=== PATIENT | female | born 1970 | race Caucasian/White ===

== ENCOUNTER 2018-11-28 13:52 | Emergency (ER) | payer OTHER ==
[2018-11-28 15:57] LABS: Urine Appearance Clear; Urine Bacteria 1+ (Absent); Urine Bilirubin Negative (Negative); Urine Blood Negative (Negative); Urine Color Straw; Urine Glucose Negative (Negative); Urine Ketones Negative (Negative); Urine Nitrite Negative (Negative); Urine Protein Negative (Negative); Urine Red Blood Cell Trace(0-2/hpf) (Absent); Urine Specific Gravity 1.005 (1.010-1.030); Urine Squamous Epithelial Cell Present (Absent); Urine Urobilinogen Negative (Negative); Urine White Blood Cell Trace(0-5/hpf) (Absent)
[2018-11-28] MEDS ORDERED: NS 0.9% 1000 ML** 1,000 ML IV ONE (16:01)
[2018-11-28] MEDS ORDERED: Ketorolac INJ* 30 MG/ML 1 ML VIAL IV PUSH ONE (16:04)
[2018-11-28] MEDS ORDERED: Ondansetron INJ* 2 MG/ML VIAL IV ONE (16:04)
--- NOTE | 2018-11-28 16:11 | ED ---
Abdominal Pain/Female - HPI Summary HPI Summary: This patient is a 48 year old F presenting to ED with a chief complaint of lower abdominal pain since 11/21/18. Patient is being treated for UTI with Bactrim. She only has 1 day left, but states she has continued pain in the R flank and low abdomen. Patients last BM was this morning, but she reports it was a small movement. Patient saw her OBGYN last week and is scheduled for an US on December. The patient rates the pain 6/10 in severity. Symptoms aggravated by nothing. Symptoms alleviated by nothing. Patient reports chills, nausea. Patient denies fever, vomiting. PSHx of appendectomy. No PMHx of diverticulitis or kidney stones. - History of Current Complaint Chief Complaint: EDAbdPain Stated Complaint: RIGHT SIDE FLANK PAIN Time Seen by Provider: 11/28/18 16:01 Hx Obtained From: Patient Hx Last Menstrual Period: currently Onset/Duration: Lasting Weeks - 1 week, Still Present Timing: Constant Severity Initially: Moderate Severity Currently: Moderate Pain Intensity: 6 Pain Scale Used: 0-10 Numeric Location: Discrete At: RLQ, Flank Aggravating Factor(s): Nothing Alleviating Factor(s): Nothing Associated Signs and Symptoms: Positive: Nausea, Other: - Chills. Negative: Fever, Vomiting Allergies/Adverse Reactions: Allergies Allergy/AdvReac Type Severity Reaction Status Date / Time MILK Allergy FLUID Uncoded 11/28/18 13:59 BUILD UP IN EARS Home Medications: Home Medications NK [No Home Medications Reported] 11/28/18 [History Confirmed 11/28/18] PMH/Surg Hx/FS Hx/Imm Hx Endocrine/Hematology History: Denies: Hx Diabetes Cardiovascular History: Denies: Hx Hypertension, Hx Pacemaker/ICD GI History: Denies: Hx Diverticulosis History: Denies: Hx Renal Disease Sensory History: Denies: Hx Hearing Aid Psychiatric History: Denies: Hx Panic Disorder - Cancer History Hx Chemotherapy: No Hx Radiation Therapy: No - Surgical History Surgery Procedure, Year, and Place: APPENDECTOMY -2005 - Immunization History Date of Tetanus Vaccine: Unk Date of Influenza Vaccine: Fall 2014 Infectious Disease History: No Infectious Disease History: Denies: Traveled Outside the [place] in Last 30 Days - Family History Known Family History: Negative: Cardiac Disease, Hypertension, Diabetes - Social History Alcohol Use: None Hx Substance Use: No Substance Use Type: Reports: None Hx Tobacco Use: Yes Smoking Status (MU): Former Smoker Review of Systems Positive: Chills. Negative: Fever Positive: Abdominal Pain, Nausea. Negative: Vomiting All Other Systems Reviewed And Are Negative: Yes Physical Exam - Summary Physical Exam Summary: GENERAL: Patient is a well-developed and nourished R who is lying comfortable in the stretcher. Patient is not in any acute respiratory distress. HEAD AND FACE: Normocephalic EYES: PERRLA, EOMI x 2. EARS: Hearing grossly intact. MOUTH: Oropharynx within normal limits. NECK: Supple, trachea is midline, no adenopathy, no JVD, no carotid bruit. CHEST: Symmetric, no tenderness at palpation LUNGS: Clear to auscultation bilaterally. No wheezing or crackles. CVS: Regular rate and rhythm, S1 and S2 present, no murmurs or gallops appreciated. ABDOMEN: Tenderness to palpation of the RLQ, no tenderness to palpation of the R CVA. EXTREMITIES: Full ROM in all major joints, no edema, no cyanosis or clubbing. NEURO: Alert and oriented x 3. No acute neurological deficits. Speech is normal and follows commands. SKIN: Dry and warm Triage Information Reviewed: Yes Vital Signs On Initial Exam: Initial Vitals Temp Pulse Resp BP Pulse Ox 98.0 F 83 16 124/80 100 11/28/18 13:55 11/28/18 13:55 11/28/18 13:55 11/28/18 13:55 11/28/18 13:55 Vital Signs Reviewed: Yes Diagnostics - Vital Signs Vital Signs Temp Pulse Resp BP Pulse Ox 11/28/18 13:55 98.0 F 83 16 124/80 100 - Laboratory Lab Results: Lab Results 11/28/18 Range/Units 15:47 Urine Color Straw Urine Appearance Clear Urine pH 6.0 (5-9) Ur Specific [place] 1.005 L (1.010-1.030) Urine Protein Negative (Negative) Urine Ketones Negative (Negative) Urine Blood Negative (Negative) Urine Nitrate Negative (Negative) Urine Bilirubin Negative (Negative) Urine Urobilinogen Negative (Negative) Ur Leukocyte Esterase Trace A (Negative) Urine WBC (Auto) Trace(0-5/hpf) (Absent) Urine RBC (Auto) Trace(0-2/hpf) (Absent) Ur Squamous Epith Cells Present A (Absent) Urine Bacteria 1+ A (Absent) Urine Glucose Negative (Negative) Result Diagrams: 11/28/18 16:17 11/28/18 16:17 Lab Statement: Any lab studies that have been ordered have been reviewed, and results considered in the medical decision making process. - CT A/P CT Interpretation Completed By: Radiologist Summary of CT Findings: 1. In the left adnexa there is a 3.2 cm fluid attenuation structure most consistent with a dominant ovarian follicle. If it' ll influence clinical management, superior characterization can be made with pelvic ultrasound. If the patient does undergo pelvic ultrasound careful imaging should also be obtained to identify any pathologically enlarged periuterine veins. 2. Metallic coils in the left ovarian vein are consistent with endovascular coiling of the left ovarian vein to treat pelvic congestion syndrome. Dr. Mcnulty has reviewed this radiology report. Re-Evaluation - Re-Evaluation First Eval Re-Evaluation Time: 18:59 Comment: Discussed CT results with patient. Patients she had coiling and varicose veins in the left abdomen. She reports not having problems in that area since. Patient is amenable to a pelvic US. Abdominal Pain Fem Course/Dx - Course Course Of Treatment: This patient is a 48 year old F presenting to ED with a chief complaint of lower abdominal pain since 11/21/18. UA revealed urine specific gravity 1.005, trace leukocyte esterase, present squamous epithelial cells, and 1+ urine bacteria. Blood work revealed sodium 134, glucose 113, absolute lymphs 0.9. In the ED course, patient received Toradol, Zofran, and fluids. CT A/P revealed 1. In the left adnexa there is a 3.2 cm fluid attenuation structure most consistent with a dominant ovarian follicle. If it' ll influence clinical management, superior characterization can be made with pelvic ultrasound. If the patient does undergo pelvic ultrasound careful imaging should also be obtained to identify any pathologically enlarged periuterine veins. 2. Metallic coils in the left ovarian vein are consistent with endovascular coiling of the left ovarian vein to treat pelvic congestion syndrome. Patient will be signed out for Dr. Edward Moulton at 1900 on 11/28/18 at shift change pending pelvic US. - Diagnoses Provider Diagnoses: Flank pain Discharge ED - Sign-Out/Discharge Documenting (check all that apply): Sign-Out Patient Signing out patient TO: Edward Moulton Patient Received Moderate/Deep Sedation with Procedure: No - Discharge Plan Referrals: Marlo REYNOLDS,Alexandre Mahoney [Primary Care Provider] - - Attestation Statements Document Initiated by Scribe: Yes Documenting Scribe: Rene Orellana Provider For Whom Robe is Documenting (Include Credential): Amador Mcnulty MD Scribe Attestation: I, Rene Orellana, scribed for Amador Mcnulty MD on 11/28/18 at 1903. Scribe Documentation Reviewed: Yes Provider Attestation: The documentation as recorded by the [email or web address] accurately reflects the service I personally performed and the decisions made by me, Amador Mcnulty MD Status of Scribe Document: Viewed
[2018-11-28 16:23] LABS: ABS Lymphocytes 0.9 10^3/ul (1.0-4.8); ABS Monocytes 0.6 10^3/ul (0-0.8); ABS Neutrophils 3.9 10^3/ul (1.5-7.7); Eosinophil % 0.7 %; Hematocrit 42 % (35-47); Hemoglobin 14.4 g/dL (12.0-16.0); Lymphocyte % 16.1 %; Mean Corpuscular HGB Conc 34 g/dL (31-36); Mean Corpuscular Hemoglobin 30 pg (27-31); Mean Corpuscular Volume 89 fL (80-97); Mean Platelet Volume 9.4 fL (7.4-10.4); Nucleated Red Blood Cells % 0.1; Platelet Count 173 10^3/uL (150-450); Red Blood Count 4.72 10^6 /uL (3.70-4.87); Red Cell Distribution Width 14 % (10-15); White Blood Count 5.5 10^3/uL (3.5-10.8)
[2018-11-28 16:40] LABS: ALT 18 U/L (7-52); AST 20 U/L (13-39); Albumin 4.4 g/dL (3.2-5.2); Albumin/Globulin Ratio 1.5 (1-3); Alkaline Phosphatase 50 U/L (34-104); Anion Gap 6 mmol/L (2-11); BUN/Creatinine Ratio 15.5 (8-20); Blood Urea Nitrogen 13 mg/dL (6-24); C Reactive Protein < 1.00 mg/L (<8.01); CO2 Carbon Dioxide 25 mmol/L (22-32); Calcium 9.3 mg/dL (8.6-10.3); Chloride 103 mmol/L (101-111); EGFR African American 86.8 (>60); EGFR Non-African American 71.8 (>60); Globulin 2.9 g/dL (2-4); Glucose 113 mg/dL (70-100); Magnesium 2.1 mg/dL (1.9-2.7); Potassium 4.1 mmol/L (3.5-5.0); Sodium 134 mmol/L (135-145); Total Protein 7.3 g/dL (6.4-8.9)
[2018-11-28] MEDS ORDERED: Iohexol 300* (CONTRAST) 10 ML SDV IV ONE (17:24)
--- NOTE | 2018-11-28 19:46 | ED ---
Progress - Progress Note Progress Note: Patient is received as a sign-out from Dr. Mcnulty to Dr. Moulton at 1900 11/28/18 shift change pending results of Pelvic/Transvaginal US. PELVIC/TRANSVAGINAL US IMPRESSION: 3.5 cm simple appearing left ovarian cyst. No suspicious adnexal mass. Color flow and vascular waveforms are documented bilaterally. THIS REPORT WAS REVIEWED BY DR. MOULTON. 2151 - Results of US were discussed with the patient. She will be discharged to home and was advised to follow up with REHABILITATION MANAGER if Sx persist. Patient understands and agrees with this plan. Re-Evaluation - Re-Evaluation First Eval Re-Evaluation Time: 21:52 Comment: 2151 - Results of US were discussed with the patient. She will be discharged to home and was advised to follow up with REHABILITATION MANAGER if Sx persist. Patient understands and agrees with this plan. Course/Dx - Course Course Of Treatment: Patient is received as a sign-out from Dr. Mcnulty to Dr. Moulton at 1900 11/28/18 shift change pending results of Pelvic/Transvaginal US. PELVIC/TRANSVAGINAL US IMPRESSION: 3.5 cm simple appearing left ovarian cyst. No suspicious adnexal mass. Color. flow and vascular waveforms are documented bilaterally. THIS REPORT WAS REVIEWED BY DR. MOULTON. 2151 - Results of US were discussed with the patient. She will be discharged to home and was advised to follow up with REHABILITATION MANAGER if Sx persist. Patient understands and agrees with this plan. - Diagnoses Provider Diagnoses: Left ovarian cyst Discharge ED - Sign-Out/Discharge Documenting (check all that apply): Patient Departure - discharge Patient Received Moderate/Deep Sedation with Procedure: No - Discharge Plan Condition: Good Disposition: HOME Patient Education Materials: Ovarian Cyst (ED) Referrals: Marlo REYNOLDS,Alexandre Mahoney [Primary Care Provider] - Additional Instructions: You have a left sided ovarian cyst, about 1 1/2" in size which is moderate sized. It could be causing the pain. Treatment is supportive, OTC analgesics can be helpful. The problem usually resolves on its own, but a followup with your location director is needed if the symptoms persist. - Billing Disposition and Condition Condition: GOOD Disposition: Home - Attestation Statements Document Initiated by Scribe: Yes Documenting Scribe: BANDAR LITTLEJOHN Provider For Whom Scribe is Documenting (Include Credential): MARGI MOULTON MD Scribe Attestation: IBANDAR, scribed for MARGI MOULTON MD on 11/29/18 at 0622. Scribe Documentation Reviewed: Yes Provider Attestation: The documentation as recorded by the scribeBANDAR accurately reflects the service I personally performed and the decisions made by me, MARGI MOULTON MD Status of Scribe Document: Viewed
[2018-11-28 22:00] VITALS: BP 112/71
== END 2018-11-28 22:00 | disposition home or self-care (01) ==
LOC: ED 13:52
DX: N83.202 Unspecified ovarian cyst, left side (principal); R10.84 Generalized abdominal pain; R11.0 Nausea; Z87.891 Personal history of nicotine dependence
CPT/HCPCS: 36415; 74177; 76856; 80053; 81003; 81015; 83605; 83690; 83735; 85025; 85730; 86140; 87086; 96361; 96374; 96375; 99282; J1885; J2405; Q9967